=== PATIENT | male | born 1950 | race Caucasian/White ===

== ENCOUNTER 2022-10-16 02:04 | Emergency (ER) | payer MEDICARE, OTHER, SELFPAY ==
[2022-10-16] VITALS (18 sets, daily range): BP systolic 124–154; BP diastolic 75–103; PULSE 80–160; RESP 10–24; TEMP 36.7; O2SAT 96–100; BMI 40.6
--- NOTE | 2022-10-16 02:17 | DI.RAD.S_ITS ---
PROCEDURE: XR CHEST 1V INDICATIONS: arrythmia TECHNIQUE: One view of the chest was acquired. COMPARISON: None. FINDINGS: Surgical changes and devices: None. Lungs and pleura: Lungs are clear. No pleural effusions or pneumothorax. Mediastinum: Mediastinal contours appear normal. Heart size is normal. Bones and chest wall: No suspicious bony lesions. Overlying soft tissues appear unremarkable. IMPRESSION: No evidence acute pulmonary process. Comment: Final report is concordant with preliminary interpretation provided by [facility]. Dictated by: Cholo Lin M.D. on 10/16/2022 at 8:36 Approved by: Cholo Lin M.D. on 10/16/2022 at 8:36
--- NOTE | 2022-10-16 02:18 | ED_ITS ---
HPI - Arrhythmia/Palpitations General Chief Complaint: Arrhythmia/Palpitations Stated Complaint: Heart racing Time Seen by Provider: 10/16/22 02:17 Source: patient and RN notes reviewed Mode of arrival: Family Vehicle Limitations: no limitations History of Present Illness HPI narrative: This is a 71-year-old male with history of atrial fibrillation on Xarelto, sotalol started in August, diltiazem and losartan. Patient states about midnight he started having elevated heart rate he took an extra diltiazem at about 12:30 a.m. with no improvement he did try me vagal maneuvers states it was not helpful. States vagal maneuvers typically are not. Patient states he has had 3 of these episodes in the past week typically in the middle of the night. He denies chest pain no shortness of breath no syncope or lightheadedness. No nausea or vomiting, no diaphoresis. No new swelling in his extremities. No dysuria urgency or frequency. No diarrhea constipation. Patient notes he is had ablation x2, he is had many cardioversions over the years he is had them starting 30 years ago. No prior cardiac stents. No prior heart attacks. He noted that his rhythm seems to be faster and more narrow than typical recently. He states this seemed to start after he was started on sotalol month ago. 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 Patient states he is scheduled for an ablation December. 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 Parks in [place]. Patient states he is had adenosine once in the past year, he is had diltiazem many times sometimes 10 or 20 mg. Patient states he is had a remote prior shoulder surgery. No known drug allergies. No tobacco, no alcohol he states he quit several years ago because his atrial fibrillation. No illicit. They are currently staying at the [facility] the [facility]. Related Data Allergies Allergy/AdvReac Type Severity Reaction Status Date / Time No Known Drug Allergies Allergy Verified 10/16/22 02:47 Review of Systems Review of Systems ROS Unobtainable: All systems reviewed & are unremarkable except as noted in HPI and below Exam Narrative Exam Narrative: GENERAL: Alert and oriented x three, obese male in mild distress. HEENT: Head normocephalic, atraumatic, EOMI, pupils reactive, face symmetric, moist mucous membranes NECK: Supple, full range of motion CARDIOVASCULAR: Tachycardic but Regular rate and rhythm without murmurs, rubs or gallops. No JVD. No swelling bilateral lower extremities. RESPIRATORY: Breath sounds equal bilaterally, no wheezes rales or rhonchi. No tachypnea or accessory muscle use. Speaks in full sentences. ABDOMEN: Soft, nontender. Normoactive bowel sounds all 4 quadrants. No guarding or rebound, rigidity, no mass : No CVA tenderness EXTREMITIES: Normal range of motion, no clubbing or edema. Neurovascularly intact NEUROLOGICAL: Cranial nerves II through XII grossly intact. Moving all extremities SKIN: Warm, dry, no petechiae, no rashes or lesions. Initial Vital Signs Initial Vital Signs: Vital Signs Temperature 98.1 F 10/16/22 02:10 Pulse Rate 160 H 10/16/22 02:10 Respiratory Rate 20 10/16/22 02:10 Blood Pressure 147/103 H 10/16/22 02:10 Pulse Oximetry 98 10/16/22 02:10 Oxygen Delivery Method Room Air 10/16/22 02:10 Course Orders Ordered: ED Orders 10/16/22 02:15 Complete Blood Count AUTO DIFF Stat Comprehensive Metabolic Panel Stat Lipase Stat MAG [Magnesium] Stat NT-proBNP (BNP-Adult 18+) Stat PTT Partial Thromboplastin Isaiah Stat Prothrombin Time INR Stat Troponin & CK Cardiac Panel Stat 10/16/22 02:17 XR chest 1V Stat EKG-12 Lead Stat Discontinued Medications Diltiazem HCl (Diltiazem 5 Mg/Ml Sdv) 10 mg IV NOW ONE Stop: 10/16/22 02:28 Last Admin: 10/16/22 02:31 Dose: 10 mg Documented By: Diltiazem HCl (Diltiazem 5 Mg/Ml Sdv) 10 mg IV NOW ONE Stop: 10/16/22 02:38 Last Admin: 10/16/22 02:40 Dose: 10 mg Documented By: Sodium Chloride (Normal Saline 0.9%) 1,000 mls @ 1,000 mls/hr IV BOLUS ONE Stop: 10/16/22 03:16 Last Infusion: 10/16/22 03:49 Dose: 0 mls/hr Documented By: Admin: 10/16/22 02:24 Dose: 1,000 mls/hr Documented By: Vital Signs Vital signs: Vital Signs - 8 hr 10/16/22 02:10 10/16/22 02:15 10/16/22 02:15 Temperature 98.1 F Pulse Rate 160 H 160 H Respiratory Rate 20 19 Blood Pressure 147/103 H 147/103 H Pulse Oximetry 98 99 Oxygen Delivery Method Room Air 10/16/22 02:30 10/16/22 02:39 10/16/22 02:39 Temperature Pulse Rate 160 H 140 H Respiratory Rate 15 16 Blood Pressure 142/75 H Pulse Oximetry 98 98 Oxygen Delivery Method 10/16/22 02:40 10/16/22 02:50 10/16/22 03:00 Temperature Pulse Rate 146 H 138 H Respiratory Rate 14 13 Blood Pressure 154/81 H Pulse Oximetry 98 98 Oxygen Delivery Method 10/16/22 03:00 10/16/22 03:10 10/16/22 03:20 Temperature Pulse Rate 144 H 135 H 82 Respiratory Rate 24 Blood Pressure Pulse Oximetry 100 97 96 Oxygen Delivery Method 10/16/22 03:30 10/16/22 03:30 10/16/22 03:32 Temperature Pulse Rate 80 81 Respiratory Rate 12 16 Blood Pressure 124/77 Pulse Oximetry 97 98 Oxygen Delivery Method 10/16/22 03:34 10/16/22 03:36 10/16/22 03:38 Temperature Pulse Rate 81 80 80 Respiratory Rate 13 10 L 10 L Blood Pressure Pulse Oximetry 98 97 96 Oxygen Delivery Method 10/16/22 03:40 10/16/22 03:42 10/16/22 03:44 Temperature Pulse Rate 80 80 80 Respiratory Rate 12 11 L 12 Blood Pressure Pulse Oximetry 96 97 96 Oxygen Delivery Method 10/16/22 03:46 Temperature Pulse Rate 82 Respiratory Rate 22 Blood Pressure Pulse Oximetry 96 Oxygen Delivery Method MDM - Arrhythmia/Palpitations Lab Data 10/16/22 02:15 10/16/22 02:15 Labs: Lab Results 10/16/22 10/16/22 10/16/22 Range/Units 02:15 02:15 02:15 WBC 8.1 (4.5-11.0) X10^3/uL RBC 4.87 (4.5-5.9) X10^6/uL Hgb 15.2 (13.5-17.5) g/dL Hct 44.9 (41-53) % MCV 92.2 (80-100) fL MCH 31.3 (26-34) PG MCHC 33.9 (30-36) % RDW 13.3 (11.6-14.8) % Plt Count 198 (150-400) X10^3/uL Neut % (Auto) 71.1 (50-75) % Lymph % (Auto) 16.7 L (25-40) % Hale % (Auto) 10.3 (3-14) % Eos % (Auto) 0.8 L (2-4) % Baso % (Auto) 1.1 (0-2) % Neut # (Auto) 5700 (2082-9119) /uL Lymph # (Auto) 1300 (2959-4504) /uL Hale # (Auto) 800 (0-900) /uL Eos # (Auto) 100 (0-450) /uL Baso # (Auto) 100 (0-100) /uL PT 22.5 H (10.1-12.7) SECONDS INR 1.9 H (0.9-1.3) APTT 41 H (26-36) SECONDS Sodium 140 (137-145) mmol/L Potassium 3.6 (3.4-5.1) mmol/L Chloride 106 (98-107) mmol/L Carbon Dioxide 28 (22-32) mmol/L BUN 18 (9-20) mg/dL Creatinine 0.75 (0.66-1.25) mg/dL Estimated GFR > 60 (>60) mL/min BUN/Creatinine Ratio 24.0 H (6-22) Glucose 130 H (80-110) mg/dL Calcium 8.6 (8.4-10.2) mg/dL Magnesium 1.9 (1.6-2.3) mg/dL Total Bilirubin 0.6 (0.2-1.3) mg/dL AST 27 (17-59) IU/L ALT 29 (<50) IU/L Alkaline Phosphatase 70 (38-126) U/L Total Creatine Kinase 184 H (55-170) U/L Troponin I < 0.012 (0.01-0.034) ng/mL NT-Pro-B Natriuret Pep (<125) pg/mL Total Protein 8.1 (6.3-8.2) g/dL Albumin 4.4 (3.5-5.0) g/dL Globulin 3.7 (1.7-4.1) g/dL Albumin/Globulin Ratio 1.2 (1.0-2.8) Lipase 64 (23-300) U/L 10/16/22 Range/Units 02:15 WBC (4.5-11.0) X10^3/uL RBC (4.5-5.9) X10^6/uL Hgb (13.5-17.5) g/dL Hct (41-53) % MCV (80-100) fL MCH (26-34) PG MCHC (30-36) % RDW (11.6-14.8) % Plt Count (150-400) X10^3/uL Neut % (Auto) (50-75) % Lymph % (Auto) (25-40) % Hale % (Auto) (3-14) % Eos % (Auto) (2-4) % Baso % (Auto) (0-2) % Neut # (Auto) (0072-1058) /uL Lymph # (Auto) (7505-0565) /uL Hale # (Auto) (0-900) /uL Eos # (Auto) (0-450) /uL Baso # (Auto) (0-100) /uL PT (10.1-12.7) SECONDS INR (0.9-1.3) APTT (26-36) SECONDS Sodium (137-145) mmol/L Potassium (3.4-5.1) mmol/L Chloride (98-107) mmol/L Carbon Dioxide (22-32) mmol/L BUN (9-20) mg/dL Creatinine (0.66-1.25) mg/dL Estimated GFR (>60) mL/min BUN/Creatinine Ratio (6-22) Glucose (80-110) mg/dL Calcium (8.4-10.2) mg/dL Magnesium (1.6-2.3) mg/dL Total Bilirubin (0.2-1.3) mg/dL AST (17-59) IU/L ALT (<50) IU/L Alkaline Phosphatase (38-126) U/L Total Creatine Kinase (55-170) U/L Troponin I (0.01-0.034) ng/mL NT-Pro-B Natriuret Pep 240 H (<125) pg/mL Total Protein (6.3-8.2) g/dL Albumin (3.5-5.0) g/dL Globulin (1.7-4.1) g/dL Albumin/Globulin Ratio (1.0-2.8) Lipase (23-300) U/L Imaging Data Chest x-ray: Radiologist's Impresson: No acute cardiopulmonary disease demonstrated. Cardiomediastinal silhouette is unremarkable. Lungs are well-aerated and clear. No mass, infiltrate or atelectasis apparent. No pleural effusion suspected. Osseous structures are unremarkable. ECG Data Attestation: I personally reviewed and interpreted this ECG as follows: Prior ECG tracings: not available for review Interpretation: SVT shows a rate of 161 QRS of [address] No [address] elevation or depression. No priors for comparison. After diltiazem 10 mg telemetry shows irregular tachycardia that looks spleen more like a atrial fibrillation. EKG 2. Shows a normal sinus rhythm rate of 80 UT 192 QRS of 96 and QTC of 426. No acute ST changes appreciated. MDM Narrative Medical decision making narrative: 71-year-old male with known history of atrial fibrillation who presents with tachycardia he is quite regular at 160 has a supraventricular tachycardia. Patient notes that the last 3 times his rhythm has been more like this rather than the typical atrial fibrillation that they will see. He states he has had adenosine once before about a year ago but tickly received diltiazem. Patient does have a significant cardiac history for arrhythmias he is anticoagulants on Xarelto. He started sotalol a month ago for his atrial fibrillation who is having weekly episodes requiring emergency room visits. He has been on diltiazem longstanding in her losartan. History of ablation x2 with many cardioversions. Patient is quite stable so will give a dose of 10 mg diltiazem this showed what appears to be more of an atrial fibrillation type rhythm was given additional 10 mg continues to slow slowly over time. Patient's labs show a CBC with normal white count, hemoglobin and platelets, INR is 1.9 normal renal function potassium is 3.6 and magnesium is 1.9 with a glucose of 130, total CK is 184. Troponin is negative. BNP is 240. Chest x-ray shows no acute change. Patient slowly drifted down words, still appears a little bit irregular tel emetry but has been consistently in the 80s. EKG was repeated and shows a normal sinus rhythm. Discussed adjusting patient's medications but he preferred adjust contact his cardiology team follow-up. Patient defers contact with his cardiology team. Discharge Plan Departure Patient Disposition: Home Clinical Impression: Atrial fibrillation with rapid ventricular response Instructions: DI for Atrial Fibrillation Activity Restrictions/Additional Instructions: Follow-up with your cardiology team. Your initial rhythm appeared to be SVT but after receiving a dose of 10mg diltiazem it appeared to be more atrial fibrillation you received 20 mg total of diltiazem. You are in a sinus rhythm on your repeat EKG today. Please return for recurrent fast were sustained heart rate, lightheadedness, passing out, new chest pain, shortness of breath, new swelling in her extremities or other new or concerning changes. Stand Alone Forms: Patient Portal/API
[2022-10-16] MEDS: SODIUM CHLORIDE 0.9% 1,000 ML 1000 ML IV (02:24)
[2022-10-16 02:26] LABS: Add Manual Diff / Slide Review NO; Basophils Absolute Auto 100 /uL (0-100); Basophils Percent Auto 1.1 % (0-2); Eosinophils Absolute Auto 100 /uL (0-450); Eosinophils Percent Auto 0.8 % (2-4); Hematocrit 44.9 % (41-53); Hemoglobin 15.2 g/dL (13.5-17.5); Lymphocytes Absolute Auto 1300 /uL (1100-4500); Lymphocytes Percent Auto 16.7 % (25-40); Mean Corpuscular HGB Conc 33.9 % (30-36); Mean Corpuscular Hemoglobin 31.3 PG (26-34); Mean Corpuscular Volume 92.2 fL (80-100); Monocytes Absolute Auto 800 /uL (0-900); Monocytes Percent Auto 10.3 % (3-14); Neutrophils Absolute Auto 5700 /uL (1500-7000); Neutrophils Percent Auto 71.1 % (50-75); Platelet Count 198 X10^3/uL (150-400); Red Blood Cell Count 4.87 X10^6/uL (4.5-5.9); Red Cell Distribution Width 13.3 % (11.6-14.8); White Blood Cell Count 8.1 X10^3/uL (4.5-11.0)
[2022-10-16 02:30] LABS: INR 1.9 (0.9-1.3); Prothrombin Time 22.5 SECONDS (10.1-12.7)
[2022-10-16] MEDS: dilTIAZem 5 MG/ML SDV 10 MG IV ×2 (02:31→02:40)
[2022-10-16 02:32] LABS: PTT Partial Thromboplastin Tim 41 SECONDS (26-36)
[2022-10-16 02:35] LABS: Alanine Aminotransferase 29 IU/L (<50); Albumin 4.4 g/dL (3.5-5.0); Albumin Globulin Ratio 1.2 (1.0-2.8); Alkaline Phosphatase 70 U/L (38-126); Aspartate Aminotransferase 27 IU/L (17-59); Bilirubin Total 0.6 mg/dL (0.2-1.3); Blood Urea Nitrogen 18 mg/dL (9-20); Calcium 8.6 mg/dL (8.4-10.2); Carbon Dioxide 28 mmol/L (22-32); Chloride 106 mmol/L (98-107); Creatine Kinase 184 U/L (55-170); Estimated Glomerular Filt Rate > 60 mL/min (>60); Globulin 3.7 g/dL (1.7-4.1); Glucose 130 mg/dL (80-110); HEMOLYSIS 17 (0-50); Lipase 64 U/L (23-300); Magnesium 1.9 mg/dL (1.6-2.3); Potassium 3.6 mmol/L (3.4-5.1); Sodium 140 mmol/L (137-145); Total Protein 8.1 g/dL (6.3-8.2)
[2022-10-16 02:47] LABS: Troponin I < 0.012 ng/mL (0.01-0.034)
[2022-10-16 02:51] LABS: NT-proBNP (BNP-Adult 18+) 240 pg/mL (<125)
== END 2022-10-16 03:51 | disposition home or self-care (01) ==
PROVIDERS: Emergency Provider Emergency Medicine
DX: I48.20 Chronic atrial fibrillation, unspecified (principal); Z79.01 Long term (current) use of anticoagulants
CPT/HCPCS: 36415; 71045; 80053; 82550; 83690; 83735; 83880; 84484; 85025; 85610; 85730; 93005; 93010; 96361; 96374; 99284